=== PATIENT | female | born 1980 | race Caucasian/White ===

== ENCOUNTER 2020-09-10 22:01 | Emergency (ER) | payer BC, SELFPAY ==
[2020-09-10 22:02] VITALS: BP 174/106; PULSE 74; RESP 16; TEMP 36.6; O2SAT 99; BMI 23.3
--- NOTE | 2020-09-10 22:29 | HMH.EDGENADL ---
ED Disposition Clinical Impression: Strain of neck muscle Qualifiers: Encounter type: initial encounter Qualified Code(s): S16.1XXA - Strain of muscle, fascia and tendon at neck level, initial encounter Disposition: Home, Self-Care Condition on Discharge: Good Instructions: DI for Neck Pain Prescriptions: Cyclobenzaprine HCl [Flexeril 10mg tablet] 10 mg PO TID PRN #12 tab PRN Reason: Muscle Spasm Transmission Status: Pending to [facility] # predniSONE [Prednisone 20mg Tab] 20 mg PO DAILY 4 Days #4 tab Transmission Status: Pending to [facility] # Referrals: Fabio Roche [Primary Care Provider] - - Critical Care Critical Care Time: No Attestation: On 09/10/20, the high probability of a clinically significant, sudden or life threatening deterioration of the following system(s) required my full and direct attention, intervention and personal management. The time I documented below is in addition to time spent performing reported procedures but includes the following listed in this critical care notation. Medical Decision Making - Medical Records Medical records reviewed: Yes: I reviewed the patient's medical records. - Sebastian Inquiry Pt receiving controlled substance: No Vital Signs: 09/10/20 22:02 Temperature 97.9 F Temperature Source Oral Pulse Rate [Right] 74 Respiratory Rate 16 Blood Pressure [Right Arm] 174/106 H Blood Pressure Mean [Right Arm] 128 02 Sat by Pulse Oximetry 99 Orders (Tests/Meds): ED MEDICATIONS Generic Name Dose Route Start Last Admin Trade Name Freq PRN Reason Stop Dose Admin Acetaminophen 1,000 mg 09/10/20 22:28 Acetaminophen 500mg Tab PO 09/10/20 22:29 ONCE ONE Discontinued Medications Generic Name Dose Route Start Last Admin Trade Name Freq PRN Reason Stop Dose Admin Prednisone 20 mg 09/10/20 22:28 Prednisone 20mg Tab PO 09/10/20 22:29 ONCE ONE Medical Decision Narrative: 40-year-old female with 5 days of muscular neck pain with palpable muscular tenderness on exam no concerning findings for meningismus and no neurologic focal findings on exam. Patient will be given prednisone 20 mg with a short burst dosing. She took naproxen prior to arrival be given Tylenol 1 g p.o. Was given conservative management instructions and discharged home in good condition. General Adult HPI - General Chief complaint: Neck Pain/Injury Stated complaint: pain in rise of neck Time Seen by Provider: 09/10/20 22:10 Mode of Arrival: Ambulatory Source of Information: Patient Limitations: No Limitations Description of Symptoms (Recalled from ER Triage Doc. by RN): pt states neck starting to hurt on sunday was seen by [facility] and prescribed flonase with no relieve - History of Present Illness HPI narrative: The posterior lateral aspect of the neck on the right. States it is been hurting since Sunday is positional in nature if she leans forward with her head the pain is worse and is causing pain up the posterior right scalp. Denies changes in vision, numbness or weakness in extremity, difficulty walking, trauma. She denies recent illnesses including fever, chills, congestion, rhinorrhea, sore throat. She has tried heat over the area which did not help. Naproxen prior to presenting in the ED. - Related Data Previous Rx's Medication Instructions Recorded Cyclobenzaprine HCl [Flexeril 10mg 10 mg PO TID PRN #12 tab 09/10/20 tablet] predniSONE [Prednisone 20mg 20 mg PO DAILY 4 Days #4 tab 09/10/20 Tab] Allergies Allergy/AdvReac Type Severity Reaction Status Date / Time amoxicillin [AMOXICILLIN] Allergy Mild Unverified 04/10/17 14:11 [facility] History - Hepatitis A Screen Drug use history?: No High risk sexual behaviors?: No History of sexually transmitted infection?: No Currently employed?: No Childcare worker?: No Do you have indoor plumbing?: Yes Do you have electricity?: Yes Attestation
[2020-09-10 22:30] VITALS: BP 132/72; PULSE 58; O2SAT 97
[2020-09-10 22:40] VITALS: BP 124/86; PULSE 60; RESP 16; TEMP 36.6; O2SAT 100
== END 2020-09-10 22:43 | disposition home or self-care (01) ==
PROVIDERS: Emergency Provider Student in an Organized Health Care Education/Training Program; PCP Family Medicine
DX: S16.1XXA Strain of muscle, fascia and tendon at neck level, initial encounter (principal)
CPT/HCPCS: 99281

== ENCOUNTER 2022-03-25 18:04 | Emergency (ER) | payer BC, SELFPAY ==
--- NOTE | 2022-03-25 19:45 | EXP.UTC ---
Discharge Plan Disposition Patient Disposition: Home, Self-Care Condition: Good Prescriptions Prescriptions: New methylprednisolone 4 mg Tablets,Dose Pack 4 mg PO DIRECTED Qty: 21 0RF benzonatate [benzonatate] 100 mg capsule 100 mg PO TIDP PRN (Reason: Cough) Qty: 30 0RF cefdinir 300 mg capsule 300 mg PO BID Qty: 20 0RF No Action prednisone 20 MG tablet 20 mg PO DAILY 4 Days Qty: 4 0RF cyclobenzaprine 10 MG tablet 10 mg PO TID PRN (Reason: Muscle Spasm) Qty: 12 0RF Referrals Follow up/Referrals: Fabio Roche [Primary Care Provider] - See instructions Activity Restrictions/Add. Instructions Additional Instructions/Restrictions: Drink plenty of fluids. Take tylenol or ibuprofen for pain or fever. Take the medications as directed. Follow up with your regular doctor. GO TO THE ER FOR ANY WORSENING SYMPTOMS Clinical Impressions Clinical Impression: Pharyngitis, Acute viral syndrome Instructions Patient Instructions: Strep Throat, DI for Strep Throat Discharge ED Provider: Saurabh Correa [facility] General Stated complaint: fever sore throat Time Seen by Provider: 03/25/22 19:44 History of Present Illness Provider Complaint: She states that for the past 2 days she has had sore throat, chills, body aches and low grade fever. Related Data Previous Rx's Medication Instructions Recorded cyclobenzaprine 10 mg tablet 10 mg PO TID PRN Muscle Spasm #12 09/10/20 tabs prednisone 20 mg tablet 20 mg PO DAILY 4 days #4 tabs 09/10/20 benzonatate 100 mg capsule 100 mg PO TIDP PRN Cough #30 caps 03/25/22 cefdinir 300 mg capsule 300 mg PO BID #20 caps 03/25/22 methylprednisolone 4 mg tablets in 4 mg PO DIRECTED #21 tabs 03/25/22 a dose pack Allergies Allergy/AdvReac Type Severity Reaction Status Date / Time amoxicillin [AMOXICILLIN] Allergy Mild Verified 03/25/22 19:52 [facility] Disclaimer: The information contained in this section may have been updated after the patient was seen, as this information can be updated by other users. Social History Smoking Status: Never smoker alcohol intake: never current occupational status: employed Travel in the last 8 weeks: None ROS Obtained: Yes All systems reviewed & no additional complaints except as documented Constitutional Constitutional: Reports chills and Reports fever(s) Eyes Eyes: Denies eye discharge ENT Ears, Nose, Mouth, and Throat: Reports as per HPI Cardiovascular Cardiovascular: Denies chest pain Respiratory Respiratory: Denies chest congestion and Reports cough Gastrointestinal Gastrointestingal: Reports nausea; Denies abdominal pain, constipation, cramping, diarrhea or vomiting Musculoskeletal Musculoskeletal: Denies arthralgias Integumentary/Breasts Skin/Breast: Denies rash Neurologic Neurologic: Denies paresthesias Physical Exam General General appearance: alert and in no apparent distress Head Head exam: atraumatic, normocephalic and normal inspection Eye Eye exam: Present normal appearance, PERRL and EOMI ENT ENT exam: Present mucous membranes moist and normal external ear exam Expanded ENT Exam TM/Canal exam: Bilateral TM: erythema and bulging Nose exam: Absent sinus tenderness Mouth exam: Present normal external inspection; Absent drooling Teeth exam: Present normal inspection Throat exam: Present tonsillar erythema, tonsillomegaly and tonsillar exudate Neck Neck exam: Present normal inspection, full ROM and trachea midline; Absent tenderness, meningismus or lymphadenopathy Chest Chest inspection: Present normal inspection and symmetric chest wall rise; Absent tenderness Respiratory Respiratory exam: Present normal lung sounds bilaterally; Absent respiratory distress, wheezes or stridor Cardiovascular Cardiovascular exam: Present regular rate and normal rhythm; Absent systolic murmur or diastolic murmur Abdominal Exam Abdomi
[2022-03-25 19:48] VITALS: BP 141/91; PULSE 80; RESP 16; TEMP 38.2; O2SAT 99; BMI 23.9
[2022-03-25 19:52] LABS: UTC Influenza A Antigen Negative (Negative); UTC Strep Screen (Rapid) Negative (Negative)
[2022-03-25 19:53] LABS: UTC Influenza B Antigen Negative (Negative)
[2022-03-25 20:26] VITALS: BP 141/91; PULSE 80; RESP 16; TEMP 37.6
== END 2022-03-25 20:27 | disposition home or self-care (01) ==
PROVIDERS: Emergency Provider Nurse Practitioner Family; PCP Family Medicine
DX: J02.9 Acute pharyngitis, unspecified (principal); R50.9 Fever, unspecified; M79.10 Myalgia, unspecified site; R05.9 Cough, unspecified; Z79.52 Long term (current) use of systemic steroids; Z79.899 Other long term (current) drug therapy; Z88.0 Allergy status to penicillin; Z88.1 Allergy status to other antibiotic agents; Z88.3 Allergy status to other anti-infective agents
CPT/HCPCS: 87804; 87880; 99213; G0463